=== PATIENT | male | born 1965 | race Caucasian/White ===

== ENCOUNTER 2016-07-13 17:02 | Inpatient (IN) | payer BC ==
--- NOTE | ~2016-07-13 | OP ---
Record Of Operation [facility] [address] [place]. [address] NAME: TEO BANKS : 69 STATUS : DIS IN PAT#: [id number] AGE: 51 ADM/REG DATE : 07/13/16 MR#: [id number] REPORT SERV DATE: 07/23/16 DICTATED BY: RASHAD CRENSHAW II DATE: 07/23/16 REPORT STATUS : Draft TRANSCRIBED BY: MODL DATE: 07/23/16 DATE OF PROCEDURE: 07/14/2016 ATTENDING PHYSICIAN: Rashad Crenshaw M.D. PREOPERATIVE DIAGNOSIS: Pulmonary embolus (saddle embolus). POSTOPERATIVE DIAGNOSIS: Pulmonary embolus (saddle embolus). PROCEDURES: 1. Ultrasound-guided venipuncture of the right common femoral vein. 2. Pulmonary artery angiogram. 3. Placement of infusion catheter for thrombolysis. ANESTHESIA: Local with MAC. ESTIMATED BLOOD LOSS: 20 mL. BRIEF HISTORY: Mr. Banks is a 51-year-old gentleman, who had presented with acute chest pain and a CT scan demonstrating a saddle embolus within the bifurcation of the pulmonary artery. Despite medical therapy, he had ongoing chest pain and back pain. He was recommended to undergo angiogram and possible thrombectomy and/or thrombolysis. DETAILS OF PROCEDURE: He was taken to the operating room and placed in supine position on the table. Both groins were prepped and draped. I used ultrasound to identify the common femoral vein on the right side, performed a puncture, and placed a 6-Pashto sheath. I was able to pass a wire through the vena cava through the superior vena cava through the right atrium and ventricle into the pulmonary artery. Pulmonary angiogram was performed demonstrating a patent pulmonary artery; however, filling defects were identified consistent with the previous CT scan of a large saddle embolus. The distal secondary and tertiary branches of the pulmonary artery appeared to be patent. At this point, I felt the best treatment was to proceed with thrombolysis rather than a thrombectomy. I placed a [place] flush catheter to within the main pulmonary artery and positioned this just before the bifurcation. We then flushed this with tPA and connected the catheter to a tPA infusion bag and then we connected the right femoral sheath to heparin. The patient will be receiving a constant tPA infusion over the next 12-24 hours. We will plan either a CT scan or a catheter check angiogram at that time. At the end of procedure, Mr. Banks was stable. He had tolerated the procedure well. DAVID/SID Rashad Crenshaw II, M.D. Record Of Operation [address] [place]. [address] NAME: TEO BANKS : 69 STATUS : DIS IN PAT#: [id number] AGE: 51 ADM/REG DATE : 07/13/16 MR#: [id number] REPORT SERV DATE: 07/23/16 DICTATED BY: RASHAD CRENSHAW II DATE: 07/23/16 REPORT STATUS : Draft TRANSCRIBED BY: SID DATE: 07/23/16 / [id number] CC: Stevan Gramajo M.D.
--- NOTE | ~2016-07-13 | HP ---
History And Physical [facility] [address] [place]. [address] NAME: TEO BANKS : 69 STATUS : ADM IN PAT#: [id number] AGE: 51 ADM/REG DATE : 07/13/16 MR#: [id number] REPORT SERV DATE: 07/14/16 DICTATED BY: HAMILTON CHASE DATE: 07/13/16 REPORT STATUS : Draft TRANSCRIBED BY: MODL DATE: 07/13/16 DATE OF ADMISSION: 07/13/2016 POINT OF ENTRY: [facility]. PRIMARY CARE PHYSICIAN: Formally, Edgar Boston M.D.; none currently. CHIEF COMPLAINT: Shortness of breath, and chest pain. HISTORY OF PRESENT ILLNESS: Mr. Banks is a 51-year-old gentleman with a history of obstructive sleep apnea on CPAP therapy, morbid obesity, as well as ADD, who presents to the emergency department today with a two to three day history of dyspnea on exertion with associated chest pain with radiation to the back. The patient states he first noticed some dyspnea on exertion on Tuesday while climbing some stairs when he was out of town in [employer]. On Tuesday he did notice much difficulty, but then on Tuesday morning as he was walking to his office he noticed extreme dyspnea on exertion requiring several breaks for rest and to catch his breath. He also describes a substernal aching type chest pain with radiation to the back. Of note, the patient did have some extended car rides to [place], [place], on Tuesday as well as to [employer] on Tuesday, but otherwise denies any known history of malignancy, recent major surgery, prolonged immobilizations, or family history of VTE. Initial evaluation in the emergency department was notable for some tachycardia 120s, but is saturating well on room air with stable blood pressures. CTA of the chest notable for acute massive saddle PE with extension into the segmental lobar arteries of all five lung zones. The patient was started on IV heparin and admitted to the Hospitalist Service as there were no ICU or IMCU beds available, and the patient was deemed hemodynamically stable and clinically stable for admission to the telemetry floor per discussion with the ICU attending, Dr. Rodríguez. The patient reports some dyspnea on exertion as well as a chest and back pain over the last two or three days. He also been suffering from an upper respiratory tract infection about a week to 10 days ago and completed a course of antibiotics. Otherwise, he denies any recent fevers, night sweats, chills, cough, sputum production, abdominal pain, nausea, vomiting, diarrhea, constipation, dysuria, lower extremity edema, melena, hematochezia, hemoptysis, or hematemesis. Comprehensive review of systems otherwise negative unless listed in history of present illness. PREVIOUS MEDICAL HISTORY: 1. Obstructive sleep apnea, on CPAP therapy. 2. Morbid obesity. 3. Allergic rhinitis. 4. ADD. PAST SURGICAL HISTORY: History And Physical [address] [address] NAME: TEO BANKS : 69 STATUS : [facility]#: [id number] AGE: 51 ADM/REG DATE : 07/13/16 MR#: [id number] REPORT SERV DATE: 07/14/16 DICTATED BY: HAMILTON CHASE DATE: 07/13/16 REPORT STATUS : Draft TRANSCRIBED BY: SID DATE: 07/13/16 1. Tonsillectomy. 2. Jaw surgery. 3. Hernia repair surgery. 4. Achilles surgery. 5. Right rotator cuff surgery. ALLERGIES: TO PENICILLIN. HOME MEDICATIONS: 1. Sue 180 mg q.h.s. 2. Flonase one spray nasal daily p.r.n. 3. Concerta 72 mg daily. 4. Benefiber p.o. daily. SOCIAL HISTORY: Denies any tobacco, alcohol, or illicits. FAMILY MEDICAL HISTORY: Mother with diabetes, hypertension, and history of DVT. Father with colon and lung cancer. Siblings unremarkable. No other known extended family history of DVT or PE. LABS AND IMAGIN. White count is 15.5, hemoglobin is 15.5, hematocrit is 47.1, and platelet count is 285. INR is 1.2. 2. Sodium is 141, potassium is 4.0, chloride 104, carbon dioxide 28, BUN 11, creatinine 0.97, glucose is 131, calcium is 9.0, and magnesium is 2.3. 3. BNP is 82.6. Troponin is 0.30. 4. Chest x-ray shows no acute cardiopulmonary disease. 5. EKG per my review shows sinus tachycardia with heart rate of 113 with S1, Q3, T3 pattern suggestive of RV strain. 6. CTA of the chest shows massive saddle PE straddling the main pulmonary artery bifurcation with extension into the lobar and segmental arteries of the bilateral upper and lower lungs as well as the right middle lung. No evidence of any RV strain. PHYSICAL EXAMINATION: VITAL SIGNS: Temperature is 99.7 degrees Fahrenheit, pulse is 123, respirations 16, saturating 94% on room air, and blood pressure 130/93, on recheck now blood pressure 142/90, saturating 97% on room air. GENERAL: The patient is awake and alert, in no acute distress. Resting comfortably in bed. He is a morbidly obese appearing male. HEENT: Atraumatic and normocephalic. Moist mucous membranes. Pupils are equal, round, reactive to light and accommodation. Extraocular eye movements are intact. No scleral icterus. NECK: No jugular venous distention. No carotid bruits. CARDIAC: Tachycardic rate, regular rhythm. No murmurs, rubs, or gallops. Normal S1, S2. LUNGS: Clear to auscultation bilaterally. No wheezes, rhonchi, or crackles, in no respiratory distress at this time on room air. ABDOMEN: Obese, soft, nontender, and nondistended. Good bowel sounds. No rebound, History And Physical [address] [address] NAME: TEO BANKS : 69 STATUS : [facility]#: [id number] AGE: 51 ADM/REG DATE : 07/13/16 MR#: [id number] REPORT SERV DATE: 07/14/16 DICTATED BY: HAMILTON CHASE DATE: 07/13/16 REPORT STATUS : Draft TRANSCRIBED BY: [facility] DATE: 07/13/16 guarding, or rigidity. EXTREMITIES: Warm and perfused with no cyanosis or clubbing. Does have some trace lower extremity edema as well as evidence of chronic venous stasis changes. SKIN: Warm and dry. PSYCH: Affect appropriate. NEURO: Alert and oriented x3. Cranial nerves 2 through 12 grossly intact. Speech is normal. Gait not assessed. ASSESSMENT AND PLAN: Mr. Banks is a 51-year-old gentleman, who presents with a few day history of dyspnea on exertion, chest pain, and back pain and found to have evidence of an acute massive saddle pulmonary embolism. PROBLEM LIST: 1. Acute massive saddle pulmonary embolism. 2. Elevated troponin level. 3. Leukocytosis. 4. Morbid obesity. 5. Obstructive sleep apnea, on CPAP therapy. PLAN: 1. Acute massive saddle pulmonary embolism. The patient has been placed on IV heparin for his acute massive saddle pulmonary embolism. Given the patient's hemodynamic stability he is currently not a candidate for thrombolytic therapy. I personally discussed the case with ICU attending, Dr. Rodríguez, who feels the patient is appropriate for the floor as there are no ICU or IMCU beds. He does recommend either Interventional Radiology or Vascular Surgical consultation in the morning for possible catheter directed thrombolysis in an elective manner given the extensive clot burden. We will check an echocardiogram in the morning to evaluate for RV strain as well as continue to trend out cardiac enzymes. 2. Elevated troponin level likely secondary to acute massive saddle pulmonary embolism. Trending out EKGs as well as cardiac enzymes. Leukocytosis likely stress response as chest x-ray and CTA chest were negative for evidence of infection. He is afebrile and has no other infectious type symptoms. We will check a urinalysis and recheck a CBC in the morning. 3. DVT prophylaxis. On IV heparin infusion. 4. Code status. The patient wished to be full code. ADINA/SID Hamilton Chase MD / [id number] CC: History And Physical [address] [address] NAME: TEO BANKS : 69 STATUS : [facility]#: [id number] AGE: 51 ADM/REG DATE : 07/13/16 MR#: [id number] REPORT SERV DATE: 07/14/16 DICTATED BY: HAMILTON CHASE DATE: 07/13/16 REPORT STATUS : Draft TRANSCRIBED BY: SID DATE: 07/13/16 Hamilton Chase MD
--- NOTE | ~2016-07-13 | DS ---
Discharge Summary [facility] [address] [facility] [place]. [address] NAME: TEO AGUIRRE : 69 STATUS : DIS IN PAT#: [id number] AGE: 51 ADM/REG DATE : 07/13/16 MR#: [id number] REPORT SERV DATE: 07/18/16 DICTATED BY: SHAUNA BERNAL DATE: 07/18/16 REPORT STATUS : Draft TRANSCRIBED BY: MODL DATE: 07/18/16 ADMISSION DATE: 07/14/2016 DISCHARGE DATE: 07/18/2016 FINAL HOSPITAL DIAGNOSES: 1. Acute pulmonary embolism or deep venous thrombosis. 2. Attention deficit disorder. 3. Obstructive sleep apnea. CONSULTATIONS: Vascular Surgery. PROCEDURES: 1. tPA for acute PE/saddle embolus. 2. Echocardiogram dated showing poor acoustic windows, low-normal systolic function, EF of 49%, small area of anteroseptal hypokinesis, grossly normal right ventricular chamber size and systolic function. No significant valvular regurgitation or stenosis, elevated right atrial and central venous pressures, dilated aortic root, no previous studies for comparison. 3. CTA of the chest on the showing large volume saddle embolus with evidence for right heart pressures. 4. Repeat CTA chest on the showing saddle PE with extension of the emboli into the upper lobe, right middle lobe, and lower lobe pulmonary arteries bilaterally. The extent of the thrombus has somewhat decreased. Atelectasis of left lower lobe. No pulmonary infarcts are identified. Doppler of the lower extremity done on the showing clot in the deep left femoral and popliteal arteries. CURRENT PHYSICAL FINDINGS AND HISTORY OF PRESENT ILLNESS: Please see initial dictated H and P by Dr. Atkinson. In brief, the patient is a 51-year-old male, who presented on the evening of the with dyspnea on exertion. This was after several car rides to [place] and [place]. Vital signs at the time of admission: BP was 139/93, he has had no fever during his hospital stay. Heart rates have been in the 70s to 80s. LAB WORK: Initial BMP was unremarkable and has remained so. Initial troponin was 0.30, felt related to the PE, subsequent were 0.18 and 0.14. Initial white count was 15,000, subsequent was as low as 10.7 on the , no significant anemia. Urinalysis was unremarkable. HOSPITAL COURSE: The patient was diagnosed with acute PE. He was started on DVT/PE protocol. He was actually hemodynamically stable despite the size of his PE. He was placed on the floor due to bed availability. Serial troponins were ordered. Home CPAP was ordered. Serial EKGs were ordered and I assumed his care the following day. Because of the significantly large PE that he had, Vascular Surgery was consulted. Vascular recommended the patient proceed with tPA due to the size of his embolus and the heart strain that was noted. The patient agreed and underwent tPA treatment and transferred to the ICU. He Discharge Summary [place] [address] [facility] [place]. [address] NAME: TEO AGUIRRE : 69 STATUS : DIS IN PAT#: [id number] AGE: 51 ADM/REG DATE : 07/13/16 MR#: [id number] REPORT SERV DATE: 07/18/16 DICTATED BY: SHAUNA BERNAL DATE: 07/18/16 REPORT STATUS : Draft TRANSCRIBED BY: SID DATE: 07/18/16 clinically improved and serial CT was improved. When the patient was stable postprocedure, he was transferred back to the floor on a heparin drip. The patient continued to recuperate without any other significant problems. It was discussed with him treatment options on the evening of the and he elected to go on Xarelto therapy. He was observed an additional night. He had no further problems or difficulties, was on room air too, was reasonably ambulatory, and was felt stable for discharge. DISPOSITION: He is discharged home. He will follow up with Dr. Florez in two weeks. He was given a prescription for Xarelto 15 mg b.i.d. He will continue aspirin 81, Sue 180, Concerta 72 daily, Flonase nasal spray, and Benefiber. He was counseled on the use of the Xarelto. He understands this is an initiating dose and that he will need to transition to a daily dose in the near future, and he voices understanding. He also understands that it will be a 6-month treatment on the anticoagulants. He may benefit from a hypercoagulable workup at that time. He is to return for any worsened swelling or pain in his leg or recurrent episodes of shortness of breath or problems with any bleeding. He is to select a PCP provider for followup. GINA/SID Shauna Bernal M.D. / [id number] CC: Shauna Bernal M.D.
[2016-07-13 15:19] LABS: BASOPHILS 0.2 %; BASOPHILS ABSOLUTE 0.03 10/3/uL (0.0-0.16); EOSINOPHILS 2.1 %; EOSINOPHILS ABSOLUTE 0.33 10/3/uL (0.0-0.53); HEMATOCRIT 47.1 % (40.0-51.0); HEMOGLOBIN 15.5 g/dL (13.6-17.8); IMMATURE GRANULOCYTES 0.3 %; IMMATURE GRANULOCYTES ABSOLUTE 0.05 10/3/uL (0.0-0.11); LYMPHOCYTES 29.3 %; LYMPHOCYTES ABSOLUTE 4.52 10/3/uL (0.67-4.30); MEAN CORPUS HGB CONC 32.9 g/dL (32.0-36.0); MEAN CORPUSCULAR HEMOGLOB 28.7 pg (26.0-34.0); MEAN CORPUSCULAR VOLUME 87.2 fL (80-100); MEAN PLATELET VOLUME 9.1 fL (9.2-13.0); MONOCYTES 8.7 %; MONOCYTES ABSOLUTE 1.34 10/3/uL (0.21-1.20); NEUTROPHILS 59.4 %; NEUTROPHILS ABSOLUTE 9.18 10/3/uL (2.02-8.40); PLATELET COUNT 285 10/3/uL (150-400); RBC DISTRIBUTION WIDTH 14.1 % (12.0-16.0); WHITE BLOOD CELLS 15.5 10/3/uL (4.5-10.5)
[2016-07-13 15:20] LABS: MANUAL DIFF NO %
[2016-07-13 15:26] LABS: INTERNATIONAL NORMAL RATI 1.2 UNITS (-); PARTIAL THROMBO TIME 30.9 SEC (22.5-37.2); PROTIME (NOT ORD) 15.1 SEC (12.0-14.5)
[2016-07-13 15:35] LABS: BUN (BLOOD UREA NITROGEN) 11 MG/DL (6-23); CHLORIDE, SERUM 104 MMOL/L (96-112); CO2 (CARBON DIOXIDE) 28 MMOL/L (24-34); CREATININE 0.97 MG/DL (0.70-1.30); GFR AFRICAN AMERICAN 106 ML/MIN (>=60); GFR NON AFRICAN AMERICAN 91 ML/MIN (>=60); GLUCOSE, SERUM 131 MG/DL (60-99); SODIUM, SERUM 141 MMOL/L (135-148)
[2016-07-13 15:36] LABS: CHEST PAIN PROFILE TAT 0 Hrs 23 Mins
[~2016-07-13 17:02] MED LIST: ASA5GR PO; CONCERTA36 PO; MSCONTIN PO; PCET PO; VESICARE10 MG PO
[2016-07-13] MEDS ORDERED: CONCERTA36 PO (18:20)
[2016-07-13] MEDS ORDERED: AUG875 PO (18:20)
[2016-07-13] MEDS ORDERED: ALLEGRA180 PO (18:20)
[2016-07-13] MEDS ORDERED: BENIFIBER PO (18:21)
[2016-07-13] MEDS ORDERED: FLONASE NAS (18:21)
[2016-07-14 00:08] LABS: CK-MB 5.1 NG/ML
[2016-07-14 00:09] LABS: CKMB INDEX (NOT ORD) 3.1; TROPONIN I 0.18 NG/ML (<0.05)
[2016-07-14 01:56] LABS: HEMATOCRIT 44.5 % (40.0-51.0); HEMOGLOBIN 14.6 g/dL (13.6-17.8); MEAN CORPUS HGB CONC 32.8 g/dL (32.0-36.0); MEAN CORPUSCULAR HEMOGLOB 28.7 pg (26.0-34.0); MEAN CORPUSCULAR VOLUME 87.4 fL (80-100); MEAN PLATELET VOLUME 9.6 fL (9.2-13.0); PLATELET COUNT 270 10/3/uL (150-400); RBC DISTRIBUTION WIDTH 14.2 % (12.0-16.0); RED CELL COUNT 5.09 10/6/uL (4.7-6.1); WHITE BLOOD CELLS 15.5 10/3/uL (4.5-10.5)
[2016-07-14 01:59] LABS: MANUAL DIFF YES %
[2016-07-14 02:12] LABS: PARTIAL THROMBO TIME 34.5 SEC (22.5-37.2)
[2016-07-14 02:15] LABS: EOSINOPHILS 4 %; EOSINOPHILS ABSOLUTE (CALC) 0.62 10/3/uL (0.0-0.53); LYMPHOCYTES 26 %; LYMPHOCYTES ABSOLUTE (CALC) 4.03 10/3/uL (0.67-4.30); MONOCYTES 8 %; MONOCYTES ABSOLUTE (CALC) 1.24 10/3/uL (0.21-1.20); NEUTROPHILS ABSOLUTE (CALC) 9.61 10/3/uL (2.02-8.40); PLATELET ESTIMATE ADQ (ADEQUATE); RBC MORPHOLOGY NORM (NORMAL); SEGMENTED NEUTROPHIL (0) 62 %; TOTAL NUCLEATED CELLS 100
[2016-07-14 05:22] LABS: ASCORBIC ACID (UR NOT ORDER) NEG (NEG); BILIRUBIN, URINE NEGATIVE (NEG); KETONE, URINE NEGATIVE (NEG); LEUKOCYTE ESTERASE(NOT OR NEG (NEG); WBC (NOT ORDERED) (RFLEX) < 1 (0-5)
[2016-07-14 05:33] LABS: BUN (BLOOD UREA NITROGEN) 10 MG/DL (6-23); CALCIUM, SERUM 8.4 MG/DL (8.5-10.4); CHLORIDE, SERUM 107 MMOL/L (96-112); CK-MB 5.1 NG/ML; CKMB INDEX (NOT ORD) 3.4; CO2 (CARBON DIOXIDE) 23 MMOL/L (24-34); CPK 151 U/L (0-200); CREATININE 0.82 MG/DL (0.70-1.30); GFR AFRICAN AMERICAN 120 ML/MIN (>=60); GFR NON AFRICAN AMERICAN 104 ML/MIN (>=60); GLUCOSE, SERUM 153 MG/DL (60-99); POTASSIUM, SERUM 3.9 MMOL/L (3.5-5.3); SODIUM, SERUM 142 MMOL/L (135-148); TROPONIN I 0.14 NG/ML (<0.05)
[2016-07-14 22:33] LABS: HEMATOCRIT 42.4 % (40.0-51.0); HEMOGLOBIN 13.6 g/dL (13.6-17.8)
[2016-07-14 22:43] LABS: FIBRINOGEN 541 MG/DL (230-462)
[2016-07-14 22:44] LABS: PARTIAL THROMBO TIME 33.5 SEC (22.5-37.2)
[2016-07-15 03:53] LABS: BASOPHILS 0.3 %; BASOPHILS ABSOLUTE 0.03 10/3/uL (0.0-0.16); EOSINOPHILS 5.1 %; EOSINOPHILS ABSOLUTE 0.59 10/3/uL (0.0-0.53); HEMATOCRIT 42.5 % (40.0-51.0); HEMOGLOBIN 13.9 g/dL (13.6-17.8); IMMATURE GRANULOCYTES 0.3 %; IMMATURE GRANULOCYTES ABSOLUTE 0.04 10/3/uL (0.0-0.11); LYMPHOCYTES 23.8 %; LYMPHOCYTES ABSOLUTE 2.75 10/3/uL (0.67-4.30); MEAN CORPUS HGB CONC 32.7 g/dL (32.0-36.0); MEAN CORPUSCULAR HEMOGLOB 28.9 pg (26.0-34.0); MEAN CORPUSCULAR VOLUME 88.4 fL (80-100); MEAN PLATELET VOLUME 9.8 fL (9.2-13.0); MONOCYTES 9.9 %; MONOCYTES ABSOLUTE 1.14 10/3/uL (0.21-1.20); NEUTROPHILS 60.6 %; NEUTROPHILS ABSOLUTE 7.01 10/3/uL (2.02-8.40); PLATELET COUNT 229 10/3/uL (150-400); RBC DISTRIBUTION WIDTH 14.2 % (12.0-16.0); RED CELL COUNT 4.81 10/6/uL (4.7-6.1); WHITE BLOOD CELLS 11.6 10/3/uL (4.5-10.5)
[2016-07-15 04:02] LABS: MANUAL DIFF NO %
[2016-07-15 04:13] LABS: BUN (BLOOD UREA NITROGEN) 8 MG/DL (6-23); CALCIUM, SERUM 8.2 MG/DL (8.5-10.4); CHLORIDE, SERUM 106 MMOL/L (96-112); CO2 (CARBON DIOXIDE) 24 MMOL/L (24-34); CREATININE 0.74 MG/DL (0.70-1.30); GFR AFRICAN AMERICAN 126 ML/MIN (>=60); GFR NON AFRICAN AMERICAN 108 ML/MIN (>=60); SODIUM, SERUM 139 MMOL/L (135-148)
[2016-07-15 04:14] LABS: FIBRINOGEN 513 MG/DL (230-462); GLUCOSE, SERUM 109 MG/DL (60-99); PARTIAL THROMBO TIME 33.7 SEC (22.5-37.2); POTASSIUM, SERUM 4.4 MMOL/L (3.5-5.3)
[2016-07-15 12:14] LABS: HEMATOCRIT 41.9 % (40.0-51.0); HEMOGLOBIN 13.5 g/dL (13.6-17.8)
[2016-07-15 12:28] LABS: FIBRINOGEN 416 MG/DL (230-462); PARTIAL THROMBO TIME 34.5 SEC (22.5-37.2)
[2016-07-15 15:57] LABS: HEMATOCRIT 41.5 % (40.0-51.0); HEMOGLOBIN 13.6 g/dL (13.6-17.8)
[2016-07-15 16:05] LABS: PARTIAL THROMBO TIME 36.4 SEC (22.5-37.2)
[2016-07-15 16:06] LABS: FIBRINOGEN 314 MG/DL (230-462)
[2016-07-15 22:18] LABS: HEMATOCRIT 41.5 % (40.0-51.0); HEMOGLOBIN 13.7 g/dL (13.6-17.8)
[2016-07-15 22:29] LABS: FIBRINOGEN 296 MG/DL (230-462); PARTIAL THROMBO TIME 34.7 SEC (22.5-37.2)
[2016-07-16 04:38] LABS: BASOPHILS 0.3 %; BASOPHILS ABSOLUTE 0.03 10/3/uL (0.0-0.16); EOSINOPHILS 4.8 %; EOSINOPHILS ABSOLUTE 0.51 10/3/uL (0.0-0.53); HEMATOCRIT 40.7 % (40.0-51.0); HEMOGLOBIN 12.9 g/dL (13.6-17.8); IMMATURE GRANULOCYTES 0.5 %; IMMATURE GRANULOCYTES ABSOLUTE 0.05 10/3/uL (0.0-0.11); LYMPHOCYTES 27.3 %; LYMPHOCYTES ABSOLUTE 2.91 10/3/uL (0.67-4.30); MEAN CORPUS HGB CONC 31.7 g/dL (32.0-36.0); MEAN CORPUSCULAR HEMOGLOB 27.4 pg (26.0-34.0); MEAN CORPUSCULAR VOLUME 86.6 fL (80-100); MEAN PLATELET VOLUME 9.3 fL (9.2-13.0); MONOCYTES 11.8 %; MONOCYTES ABSOLUTE 1.26 10/3/uL (0.21-1.20); NEUTROPHILS 55.3 %; NEUTROPHILS ABSOLUTE 5.91 10/3/uL (2.02-8.40); PLATELET COUNT 203 10/3/uL (150-400); WHITE BLOOD CELLS 10.7 10/3/uL (4.5-10.5)
[2016-07-16 04:51] LABS: MANUAL DIFF NO %
[2016-07-16 04:57] LABS: BUN (BLOOD UREA NITROGEN) 9 MG/DL (6-23); CALCIUM, SERUM 8.2 MG/DL (8.5-10.4); CHLORIDE, SERUM 104 MMOL/L (96-112); CO2 (CARBON DIOXIDE) 24 MMOL/L (24-34); CREATININE 0.85 MG/DL (0.70-1.30); GFR AFRICAN AMERICAN 119 ML/MIN (>=60); GFR NON AFRICAN AMERICAN 102 ML/MIN (>=60); GLUCOSE, SERUM 112 MG/DL (60-99); SODIUM, SERUM 139 MMOL/L (135-148)
[2016-07-16 04:58] LABS: PARTIAL THROMBO TIME 43.7 SEC (22.5-37.2)
[2016-07-18 06:04] LABS: INTERNATIONAL NORMAL RATI 1.7 UNITS (-); PARTIAL THROMBO TIME 38.8 SEC (22.5-37.2); PROTIME (NOT ORD) 19.7 SEC (12.0-14.5)
[2016-07-18] MEDS ORDERED: XARELTO15 MG PO (15:14)
[2016-07-18] MEDS ORDERED: ASAB PO (17:12)
== END 2016-07-18 17:41 | disposition home or self-care (01) | DRG 176 ==
LOC: ER 17:02 → 6NO 21:43 → CVICU 07-14 19:18 → 2SO 07-16 18:50
PROVIDERS: Emergency Medicine; Internal Medicine; Specialist; Surgery
PROC: 02HQ33Z Insertion of Infusion Device into Right Pulmonary Artery, Percutaneous Approach (ICD-10-PCS; 2016-07-14)
PROC: 3E03317 Introduction of Other Thrombolytic into Peripheral Vein, Percutaneous Approach (ICD-10-PCS; principal; 2016-07-14 16:15)
PROC: B31S1ZZ Fluoroscopy of Right Pulmonary Artery using Low Osmolar Contrast (ICD-10-PCS; 2016-07-14 16:15)
DX: I26.92 Saddle embolus of pulmonary artery without acute cor pulmonale (principal); Z99.81 Dependence on supplemental oxygen; I82.432 Acute embolism and thrombosis of left popliteal vein; Z68.42 Body mass index [BMI] 45.0-49.9, adult; I82.412 Acute embolism and thrombosis of left femoral vein; E66.01 Morbid (severe) obesity due to excess calories; G47.33 Obstructive sleep apnea (adult) (pediatric); F98.8 Other specified behavioral and emotional disorders with onset usually occurring in childhood and adolescence; J06.9 Acute upper respiratory infection, unspecified; I87.8 Other specified disorders of veins; I10 Essential (primary) hypertension; D50.9 Iron deficiency anemia, unspecified; Z88.0 Allergy status to penicillin; Z79.899 Other long term (current) drug therapy; Z83.3 Family history of diabetes mellitus; Z82.49 Family history of ischemic heart disease and other diseases of the circulatory system; Z86.718 Personal history of other venous thrombosis and embolism; Z80.0 Family history of malignant neoplasm of digestive organs; Z80.1 Family history of malignant neoplasm of trachea, bronchus and lung; Z98.890 Other specified postprocedural states
CPT/HCPCS: 36014; 37211; 71020; 71275; 75741; 80048; 81001; 82550; 82553; 83735; 83880; 84484; 85014; 85018; 85025; 85384; 85610; 85730; 93005; 93970; 96374; 99291; A9270-GY; C1769; C1894; C8929; J2250; J2370; J2405; J2997; J3010; Q9957; Q9967